=== PATIENT | male | born 1990 | race African-American/Black ===

== ENCOUNTER 2020-05-14 21:01 | Emergency (ER) | payer SELFPAY ==
[~2020-05-14] VITALS: Ht 167.6 cm; Wt 78.5 kg
[2020-05-14 21:01] VITALS: BP 171/115
[2020-05-14] MEDS ORDERED: P-EP-92 PO (22:21)
--- NOTE | 2020-05-14 22:32 | NUR ---
Patient discharged to home in stable condition. Written and verbal after care instructions given. Patient verbalizes understanding of instruction.
== END 2020-05-14 22:33 | disposition home or self-care (01) ==
LOC: ER 21:06
DX: H92.01 Otalgia, right ear (principal); F41.9 Anxiety disorder, unspecified